=== PATIENT | male | born 1980 | race Caucasian/White ===

== ENCOUNTER 2023-10-16 09:04 | Outpatient (CLI) | payer BC | END 2023-10-16 09:05 | disposition home or self-care (01) | LOC: CT 09:04 | PROVIDERS: ATTEND Otolaryngology Otolaryngic Allergy | DX: M54.2 Cervicalgia (principal); H90.41 Sensorineural hearing loss, unilateral, right ear, with unrestricted hearing on the contralateral side; R42 Dizziness and giddiness; H61.92 Disorder of left external ear, unspecified | CPT/HCPCS: 70553; 72125 ==